=== PATIENT | female | born 1940 | race Caucasian/White ===

== ENCOUNTER 2017-03-16 14:17 | Observation (INO) | payer MEDICARE, MEDICAID ==
[~2017-03-16] VITALS: Ht 165.1 cm; Wt 89.9 kg
[~2017-03-16 14:17] MED LIST: ADVAIR HFA1 AER IH; ARICEPT 5MG TAB5 MG PO; ASPIRIN ADULT L81 M3 PO; CEFDINIR 300MG300 MG PO; CHLORDIAZEPOXID1 CAP PO; FLEXERIL10 MG PO; FOLBIC RF1 TAB PO; HYDROCHLOROTHIA25 M1 PO; HYDROXYZINE 25M25 MG PO; HYDROXYZINE HCL25 MG PO; IBUPROFEN200 MG PO; KAPIDEX60 MG PO; KETOPROFEN200 MG PO; LABETALOL 100M100 M1 PO; LASIX 40MG. TAB40 MG PO; LEVAQUIN500 MG PO; LEVOFLOXACIN 5500 MG PO; LIBRAX CAPSULE1 EACH PO; LOPRESSOR 50 MG50 MG PO; LOPRESSOR HCT1 TAB PO; MAGMTHWSH PO; MECLIZINE HYDRO25 MG PO; MULTIVITAMIN1 SGL PO; NICOTINE21 MG/24 H TD; OSTERA TABLET1 EACH PO; OXYCODONE5 MG PO; POTASSIUM CHLO10 MEQ PO; SIMVASTATIN40 MG PO
[2017-03-16 14:18] VITALS: BP 202/102; BP 254/132
--- OUTSIDE RECORDS SUMMARY | 2017-03-16 14:47 | External Medical Summary Rpt | CCD ---
Author Author , YVETTE JACKSON Address Unknown Phone [email or web address] Global Immunization Name Date Rout CVX Reac Dose Comm Prov Is Faci e tion ent ider Refu lity Give sed n PPV2 05-1 Intr 33 0.5 Hist PD20 No PD20 3 5-20 amus mL oric 255 255 17 cula al r Info rmat ion - Sour ce Unsp ecif ied
--- OUTSIDE RECORDS SUMMARY | 2017-03-16 14:47 | External Medical Summary Rpt | CCD ---
Author Author [employer] Organization [employer] Address Unknown Phone Unavailable Purpose Continuity of Care Document - through 2016
--- OUTSIDE RECORDS SUMMARY | 2017-03-16 14:47 | External Medical Summary Rpt | CCD ---
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 LOBAR PNEUMONIA, UNSPECIFIED ORGANISM J44.9 CHRONIC OBSTRUCTIVE PULMONARY DISEASE, UNSPECIFIED N39.0 URINARY TRACT INFECTION, SITE NOT SPECIFIED Results Labs Lab Lab Date Result Refere Interp Status Commen Order Detail nces retati t Range on Gas panel in Arterial blood (10-29-2016 11:45) Arteria NON complet l 017 APPLICA ed patency 11:45 BLE Wrist artery --pre arteria l punctur e SOURCE LEFT complet 017 BRACHIA ed 11:45 L Urinalysis dipstick W Reflex Microscopic panel in Urine (10-29-2016 10:50) Bacteri TRACE O complet a 017 ed [Presen 10:50 ce] in Urine sedimen t by Light microsc opy Erythro 3-5 0 complet cytes 017 ed [Presen 10:50 ce] in Urine sedimen t by Light microsc opy Epithel NONE 0#/hp complet ial 017 f - ed cells.s 10:50 5#/hp quamous f [Presen ce] in Urine sedimen t by Microsc opy high power field Urinalysis dipstick W Reflex Microscopic panel in Urine (10-29-2016 10:50) Appeara CLEAR CLEAR complet nce of 017 ed Urine 10:50 Bilirub NEGATIV NEG complet in 017 E ed [Presen 10:50 ce] in Urine by Test strip Erythro 2+ NEG Abnorma complet cytes 017 l ed [Presen 10:50 ce] in Urine Color YELLOW YELLOW complet of 017 ed Urine 10:50 Ketones 07-10-2 NEGATIV NEG complet 017 E ed [Presen 10:50 ce] in Urine by Automat ed test strip Mucus NEGATIV NEG complet [Presen 017 E ed ce] in 10:50 Urine sedimen t by Light microsc opy Nitrite NEGATIV NEG complet 017 E ed [Presen 10:50 ce] in Urine by Test strip Urobili 0.2 NEG complet nogen 017 ed [Presen 10:50 ce] in Urine by Test strip
--- OUTSIDE RECORDS SUMMARY | 2017-03-16 14:47 | External Medical Summary Rpt | CCD ---
Author Author , YVETTE Organization YVETTE Address Unknown Phone [email or web address] Purpose Continuity of Care Document - 10-29-2016 [...]
--- OUTSIDE RECORDS SUMMARY | 2017-03-16 14:47 | External Medical Summary Rpt | CCD ---
Author Author , YVETTE JACKSON Address Unknown Phone [email or web address] Agent Immunization Name Date Rout CVX Reac Dose Comm Prov Is Faci e tion ent ider Refu lity Give sed n PPV2 05-1 Intr 33 0.5 Hist PD20 No PD20 3 5-20 amus mL oric 255 255 17 cula al r Info rmat ion - Sour ce Unsp ecif ied
--- OUTSIDE RECORDS SUMMARY | 2017-03-16 14:48 | External Medical Summary Rpt ---
Author Author FANNYMOSHE Manzo, [employer] Organization [employer] Address Unknown Phone Unavailable Results Basic metabolic panel in Blood Observa Value Referen Units Interpr Notes Date tion ce etation Range Urea 7 - 18 mg/dL Normal No Oct 31 nitrogen informati 2016 6:10 [Mass/vol on in AM ume] in source Serum or data Plasma Calcium 8.5 - mg/dL Low Oct 31 [Mass/vol 10.1 NOTIFICAT 2017 6:10 ume] in ION AM Serum or RESULT Plasma Chloride 98 - 107 mmoL/L Normal No Oct 31 [Moles/vo informati 2016 6:10 lume] in on in AM Serum or source Plasma data Carbon 21.0 - mmoL/L High No Oct 31 dioxide, 32.0 informati 2017 6:10 total on in AM [Moles/vo source lume] in data Serum or Plasma Creatinin 0.55 - mg/dL Normal No Oct 31 e 1.02 informati 2016 6:10 [Mass/vol on in AM ume] in source Serum or data Plasma Creatinin 50 - 200 ML/MIN Normal No Oct 31 e renal informati 2017 6:10 clearance on in AM source predicted data by Cockcroft -Gault formula Estimated 59- ML/MIN No REFERENCE Oct 31 informati RANGE: 2017 6:10 glomerula on in >60 AM r source ML/MIN/1. filtratio data 73 SQUARE n rate METERSIf (GF this patient is -A merican, then multiply theresult by 1.210. Glucose 74 - 106 mg/dL High No Oct 31 [Mass/vol informati 2016 6:10 ume] in on in AM Serum or source Plasma data Potassium 3.5 - 5.1 mmoL/L Low No Oct 31 informati 2016 6:10 [Moles/vo on in AM lume] in source Serum or data Plasma Sodium 136 - 145 mmoL/L Normal No Oct 31 [Moles/vo informati 2016 6:10 lume] in on in AM Serum or source Plasma data CBC W Auto Differential panel in Blood Observa Value Referen Units Interpr Notes Date tion ce etation Range Basophils 0 - 0.2 K/MM3 Normal No Oct 30 informati 2016 6:05 [#/volume on in AM ] in source Blood by data Automated count Basophils 0.1 - 2.0 % Normal No Oct 30 informati 2017 6:05 leukocyte on in AM s in source Blood by data Automated count Eosinophi 0.0 - 0.4 K/mm3 Normal No Oct 30 ls informati 2016 6:05 [#/volume on in AM ] in source Blood by data Automated count Eosinophi 0.1 - % Normal No Oct 30 ls/100 12.0 informati 2016 6:05 leukocyte on in AM s in source Blood by data Automated count Granulocy 1.8 - 7.8 K/mm3 Normal No Oct 30 major informati 2016 6:05 [#/volume on in AM ] in source Blood by data Automated count Granulocy 37.0 - % Normal No Oct 30 major/100 80.0 informati 2016 6:05 leukocyte on in AM s in source Blood by data Automated count Hematocri 37.0 - % Normal No Oct 30 t [Volume 47.0 informati 2016 6:05 on in AM Fraction] source of Blood data Hemoglobi 12.2 - g/dL Normal No Oct 30 n 16.2 informati 2016 6:05 [Mass/vol on in AM ume] in source Blood data Lymphocyt 0.7 - 4.5 K/mm3 Normal No Oct 30 es informati 2016 6:05 [#/volume on in AM ] in source Unspecifi data ed specimen by Automated count Lymphocyt 10 - 50.0 % Normal No Oct 30 es informati 2016 6:05 [#/volume on in AM ] in source Unspecifi data ed specimen by Automated count Erythrocy 27 - 31.2 pg Normal No Oct 30 te mean informati 2016 6:05 corpuscul on in AM ar source hemoglobi data n [Entitic mass] Erythrocy 31.8 - g/dl Normal No Oct 30 te mean 35.4 informati 2017 6:05 corpuscul on in AM ar source hemoglobi data n concentra tion [Mass/vol ume] by Automated count Erythrocy 82.2 - fl Normal No Oct 30 te mean 97.8 informati 2017 6:05 corpuscul on in AM ar volume source [Entitic data volume] by Automated count Monocytes 0.1 - 1.0 K/mm3 Normal No Oct 30 informati 2017 6:05 [#/volume on in AM ] in source Blood by data Automated count Monocytes 1.7 - 9.3 % Normal No Oct 30 /100 informati 2017 6:05 leukocyte on in AM s in source Blood by data Automated count Platelet 7.4 - fl Low No Oct 30 mean 10.4 informati 2017 6:05 volume on in AM [Entitic source volume] data in Blood by Automated count Platelets 142 - 424 K/mm3 Normal No Oct 30 informati 2017 6:05 [#/volume on in AM ] in source Blood data Erythrocy 4.2 - 5.4 M/mm3 Normal No Oct 30 major informati 2017 6:05 [#/volume on in AM ] in source Amniotic data fluid Erythrocy 11.5 - % Normal No Oct 30 te 17.5 informati 2016 6:05 distribut on in AM ion width source [Entitic data volume] by Automated count Leukocyte 4.8 - K/MM3 Normal No Oct 30 s 10.8 informati 2016 6:05 [#/volume on in AM ] in source Blood data Basic metabolic panel in Blood Observa Value Referen Units Interpr Notes Date tion ce etation Range Urea 7 - 18 mg/dL Normal No Oct 30 nitrogen informati 2017 6:05 [Mass/vol on in AM ume] in source Serum or data Plasma Calcium 8.5 - mg/dL Low No Oct 30 [Mass/vol 10.1 informati 2017 6:05 ume] in on in AM Serum or source Plasma data Chloride 98 - 107 mmoL/L Normal No Oct 30 [Moles/vo informati 2017 6:05 lume] in on in AM Serum or source Plasma data Carbon 21.0 - mmoL/L High No Oct 30 dioxide, 32.0 informati 2017 6:05 total on in AM [Moles/vo source lume] in data Serum or Plasma Creatinin 0.55 - mg/dL Normal No Oct 30 e 1.02 informati 2017 6:05 [Mass/vol on in AM ume] in source Serum or data Plasma Creatinin 50 - 200 ML/MIN Normal No Oct 30 e renal informati 2017 6:05 clearance on in AM source predicted data by Cockcroft -Gault formula Estimated 59- ML/MIN No REFERENCE Oct 30 informati RANGE: 2017 6:05 glomerula on in >60 AM r source ML/MIN/1. filtratio data 73 SQUARE n rate METERSIf (GF this patient is -A merican, then multiply theresult by 1.210. Glucose 74 - 106 mg/dL High No Oct 30 [Mass/vol informati 2016 6:05 ume] in on in AM Serum or source Plasma data Potassium 3.5 - 5.1 mmoL/L Low alert Oct 30 2017 6:05 [Moles/vo CRITICAL AM lume] in RESULTS Serum or Plasma RESU LTS CALLED TO: GEOVANI 10/30/16 0643 Isabel Olivas e Sodium 136 - 145 mmoL/L Normal No Oct 30 [Moles/vo informati 2016 6:05 lume] in on in AM Serum or source Plasma data Gas panel in Arterial blood Observa Value Referen Units Interpr Notes Date tion ce etation Range Base -2.4-+2.3 MMOL/L High No Oct 29 excess in informati 2016 Arterial on in 11:45 AM blood source data Arteria NON No No No No Oct 29 l APPLICA informa informa informa informa 2017 patency BLE tion in tion in tion in tion in 11:45 Wrist source source source source AM artery data data data data --pre arteria l punctur e Bicarbona 22.0 - MMOL/L High No Oct 29 te 26.0 informati 2016 [Moles/vo on in 11:45 AM lume] in source Arterial data blood Oxygen No No No No Oct 29 content informati informati informati informati 2017 in on in on in on in on in 11:45 AM Arterial source source source source blood data data data data Carbon 35.0 - MMHG High Oct 29 dioxide 45.0 2016 [Partial CRITICAL 11:45 AM pressure] RESULTS in Arterial RESU blood LTS CALLED TO: DONNA AQUINO 10/29/16 1202 Earnestine Zhu pH of 7.35 - MMOL/L Normal No Oct 29 Arterial 7.45 inform2016 blood on in 11:45 AM source data Oxygen 80 - 100 MMHG Low No Oct 29 [Partial informati 2017 pressure] on in 11:45 AM in source Arterial data blood Oxygen 90 - 100 % Normal No Oct 29 saturatio ati 2016 n.calcula on in 11:45 AM johanny from source oxygen data partial pressure in Arterial blood SOURCE LEFT No No No No Oct 29 BRACHIA informa informa informa informa 2017 L tion in tion in tion in tion in 11:45 source source source source AM data data data data Carbon 23 - 27 MMOL/L High No Oct 29 dioxide, informati 2017 total on in 11:45 AM [Moles/vo source lume] in data Arterial blood Urinalysis dipstick W Reflex Microscopic panel in Urine Observa Value Referen Units Interpr Notes Date tion ce etation Range Appeara CLEAR CLEAR No No No Oct 29 nce of informa informa informa 2017 Urine tion in tion in tion in 10:50 source source source AM data data data Bacteri TRACE O No No No Oct 29 a informa informa informa 2016 [Presen tion in tion in tion in 10:50 ce] in source source source AM Urine data data data sedimen t by Light microsc opy Bilirub NEGATIV NEG No No No Oct 29 in E informa informa informa 2016 [Presen tion in tion in tion in 10:50 ce] in source source source AM Urine data data data by Test strip Erythro 2+ NEG No Abnorma No Oct 29 cytes informa l informa 2016 [Presen tion in tion in 10:50 ce] in source source AM Urine data data Color YELLOW YELLOW No No No Oct 29 of informa informa informa 2017 Urine tion in tion in tion in 10:50 source source source AM data data data Glucose NEG No High No Oct 29 [Mass/vol informati informati 2017 ume] in on in on in 10:50 AM Urine by source source Test data data strip Ketones NEGATIV NEG mg/dL No No Oct 29 E informa informa 2016 [Presen tion in tion in 10:50 ce] in source source AM Urine data data by Automat ed test strip Mucus NEGATIV NEG No No No Oct 29 [Presen E informa informa informa 2017 ce] in tion in tion in tion in 10:50 Urine source source source AM sedimen data data data t by Light microsc opy Nitrite NEGATIV NEG No No No Oct 29 E informa informa informa 2017 [Presen tion in tion in tion in 10:50 ce] in source source source AM Urine data data data by Test strip pH of 5.0 - 8.5 No Normal No Oct 29 Urine informati informati 2017 on in on in 10:50 AM source source data data Protein NEG mg/dL High No Oct 29 [Mass/vol informati 2017 ume] in on in 10:50 AM Urine by source Automated data test strip Erythro 3-5 0 rbc/hpf No No Oct 29 cytes informa informa 2016 [Presen tion in tion in 10:50 ce] in source source AM Urine data data sedimen t by Light microsc opy Specific 1.005 - No Normal No Oct 29 gravity 1.030 informati informati 2017 of Urine on in on in 10:50 AM source source data data Epithel NONE 0 - 5 #/hpf No No Oct 29 ial informa informa 2017 cells.s tion in tion in 10:50 quamous source source AM data data [Presen ce] in Urine sedimen t by Microsc opy high power field Urobili 0.2 NEG E.U./dL No No Oct 29 nogen informa informa 2016 [Presen tion in tion in 10:50 ce] in source source AM Urine data data by Test strip Leukocyte O wbc/hpf No No Oct 29 s informati informati 2017 [#/volume on in on in 10:50 AM ] in source source Urine data data Urinalysis dipstick W Reflex Microscopic panel in Urine Observa Value Referen Units Interpr Notes Date tion ce etation Range Appeara CLEAR CLEAR No No No Oct 29 nce of informa informa informa 2017 Urine tion in tion in tion in 10:50 source source source AM data data data Bilirub NEGATIV NEG No No No Oct 29 in E informa informa informa 2017 [Presen tion in tion in tion in 10:50 ce] in source source source AM Urine data data data by Test strip Erythro 2+ NEG No Abnorma No Oct 29 cytes informa l informa 2016 [Presen tion in tion in 10:50 ce] in source source AM Urine data data Color YELLOW YELLOW No No No Oct 29 of informa informa informa 2017 Urine tion in tion in tion in 10:50 source source source AM data data data Glucose NEG No High No Oct 29 [Mass/vol informati informati 2016 ume] in on in on in 10:50 AM Urine by source source Test data data strip Ketones NEGATIV NEG mg/dL No No Oct 29 E informa informa 2016 [Presen tion in tion in 10:50 ce] in source source AM Urine data data by Automat ed test strip Mucus NEGATIV NEG No No No Oct 29 [Presen E informa informa informa 2016 ce] in tion in tion in tion in 10:50 Urine source source source AM sedimen data data data t by Light microsc opy Nitrite NEGATIV NEG No No No Oct 29 E informa informa informa 2016 [Presen tion in tion in tion in 10:50 ce] in source source source AM Urine data data data by Test strip pH of 5.0 - 8.5 No Normal No Oct 29 Urine informati informati 2016 on in on in 10:50 AM source source data data Protein NEG mg/dL High No Oct 29 [Mass/vol informati 2016 ume] in on in 10:50 AM Urine by source Automated data test strip Specific 1.005 - No Normal No Oct 29 gravity 1.030 informati informati 2016 of Urine on in on in 10:50 AM source source data data Urobili 0.2 NEG E.U./dL No No Oct 29 nogen informa informa 2016 [Presen tion in tion in 10:50 ce] in source source AM Urine data data by Test strip Lactate [Moles/volume] in Blood Observa Value Referen Units Interpr Notes Date tion ce etation Range Lactate 0.4 - 2.0 mmol/L Normal No Oct 29 [Moles/vo informati 2017 9:40 lume] in on in AM Blood source data Fibrin D-dimer FEU [Mass/volume] in Platelet poor plasma Observa Value Referen Units Interpr Notes Date tion ce etation Range Fibrin 0 - 400 ng/mL High Oct 29 D-dimer alert NOTIFICAT 2017 9:35 FEU ION AM [Mass/vol RESULT ume] in The Platelet D-Dimer poor values plasma are presented in units of mass(ng/m L) ofD-Dimer units(DDU ).This test has been FDA approved as an aid in the assessmen tand evaluatio n of suspected DIC, and thromboem bolic eventsinc luding PE and DVT. However, it does not have approvalf or cut-off values for the exclusion of these condition s. Natriutietic peptide B [Mass/volume] in Serum or Plasma Observa Value Referen Units Interpr Notes ti ce etation Range Natriutie 0 - 100 pg/mL Normal No Oct 29 tic informati 2016 9:35 peptide B on in AM source [Mass/vol data ume] in Serum or Plasma PT & aPTT panel in Platelet poor plasma by Coagulation assay Observa Value Referen Units Interpr Notes ti ce etation Range INR in 0.9 - 1.1 No No INDICATIO Oct 29 Blood by informati informati N 2016 9:35 Coagulati on in on in AM on assay source source INR data data RANGETHER APY FOR DVT, PE, ATRIAL FIB; 2.0 - 3.0PROPHY LAXIS FOR VTETHERAP Y FOR MECHANICA L HEART 2.5 - 3.5VALVE; PREVENTIO N OF SYSTEMICE MBOLISM SECONDARY TO AMI Prothromb 9.4 - SECONDS Normal No Oct 29 in time 11.8 informati 2016 9:35 (PT) in on in AM Platelet source poor data plasma by Coagulati on assay Activated 23.6 - SECONDS Normal No Oct 29 partial 34.0 informati 2016 9:35 thrombpla on in AM stin time source (aPTT) data in Platelet poor plasma by Coagulati on assay CBC W Auto Differential panel in Blood Observa Value Referen Units Interpr Notes Date ti ce etation Range Basophils 0 - 0.2 K/MM3 Normal No Oct 29 informati 2016 9:35 [#/volume on in AM ] in source Blood by data Automated count Basophils 0.1 - 2.0 % Normal No Oct 29 /100 informati 2016 9:35 leukocyte on in AM s in source Blood by data Automated count Eosinophi 0.0 - 0.4 K/mm3 Normal No Oct 29 ls informati 2016 9:35 [#/volume on in AM ] in source Blood by data Automated count Eosinophi 0.1 - % Normal No Oct 29 ls/100 12.0 informati 2017 9:35 leukocyte on in AM s in source Blood by data Automated count Granulocy 1.8 - 7.8 K/mm3 High No Oct 29 major informati 2016 9:35 [#/volume on in AM ] in source Blood by data Automated count Granulocy 37.0 - % Normal No Oct 29 major/100 80.0 informati 2016 9:35 leukocyte on in AM s in source Blood by data Automated count Hematocri 37.0 - % Normal No Oct 29 t [Volume 47.0 informati 2016 9:35 on in AM Fraction] source of Blood data Hemoglobi 12.2 - g/dL Normal No Oct 29 n 16.2 informati 2016 9:35 [Mass/vol on in AM ume] in source Blood data Lymphocyt 0.7 - 4.5 K/mm3 Normal No Oct 29 es informati 2016 9:35 [#/volume on in AM ] in source Unspecifi data ed specimen by Automated count Lymphocyt 10 - 50.0 % Normal No Oct 29 es informati 2016 9:35 [#/volume on in AM ] in source Unspecifi data ed specimen by Automated count Erythrocy 27 - 31.2 pg Normal No Oct 29 te mean informati 2016 9:35 corpuscul on in AM ar source hemoglobi data n [Entitic mass] Erythrocy 31.8 - g/dl Normal No Oct 29 te mean 35.4 informati 2016 9:35 corpuscul on in AM ar source hemoglobi data n concentra tion [Mass/vol ume] by Automated count Erythrocy 82.2 - fl Normal No Oct 29 te mean 97.8 informati 2016 9:35 corpuscul on in AM ar volume source [Entitic data volume] by Automated count Monocytes 0.1 - 1.0 K/mm3 Normal No Oct 29 informati 2016 9:35 [#/volume on in AM ] in source Blood by data Automated count Monocytes 1.7 - 9.3 % Normal No Oct 29 informati 2016 9:35 leukocyte on in AM s in source Blood by data Automated count Platelet 7.4 - fl Normal No Oct 29 mean 10.4 informati 2016 9:35 volume on in AM [Entitic source volume] data in Blood by Automated count Platelets 142 - 424 K/mm3 Normal No Oct 29 informati 2016 9:35 [#/volume on in AM ] in source Blood data Erythrocy 4.2 - 5.4 M/mm3 Normal No Oct 29 major informati 2016 9:35 [#/volume on in AM ] in source Amniotic data fluid Erythrocy 11.5 - % Normal No Oct 29 te 17.5 informati 2016 9:35 distribut on in AM ion width source [Entitic data volume] by Automated count Leukocyte 4.8 - K/MM3 Normal No Oct 29 s 10.8 informati 2016 9:35 [#/volume on in AM ] in source Blood data
[2017-03-16 15:01] LABS: URINE BILIRUBIN - DIPSTICK NEGATIVE (NEG); URINE BLOOD 1+ (NEG)
[2017-03-16 15:11] LABS: URINE SQUAMOUS CELLS OCC #/hpf (0-5)
[2017-03-16 15:15] LABS: LYMPH # 0.9 K/mm3 (0.7-4.5); LYMPH % 8.5 % (10-50.0)
[2017-03-16 15:16] LABS: HEMOGLOBIN 14.3 g/dL (12.2-16.2)
--- NOTE | 2017-03-16 15:38 | Emergency Room Report ---
History of Present Illness Time Seen by 1420 Presenting Problem in Triage Pt arrived:Ambulance Stretcher Presenting Problem:PT SON STATES FOUND PT AT HOME CONFUSED ACTING. STATES PT WAS HER NORMAL LASTNIGHT. SON CAME TO PT HOME AT 1100. PT SPEECH IS CLEAR BUT CONFUSED IN NATURE AT TIMES. PT CAN ANSWER SOME QUESTIONS. 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 N Clinical Suspician of Infection? N Mental Status: 2 - Mildly Altered Sepsis Risk:Low Sepsis Risk Have you (or family members/close friends) recently traveled outside the [place]? N If Yes, where/when: Have you had exposure to infectious disease within the past month? N TB? Other? Specify: Source patient, RN notes reviewed, family, EMS, old records Exam Limitations no limitations Comment pt was noted at 1100 am to have expressive aphasia - last noted to be nl at 2300 prev night - she has no fever or rash or trauma but had similiar issues in november 05 Cardiac Chest Pain Chest pain indicative of cardiac No Timing/Duration this evening Severity moderate ALLERGIES Coded Allergies: Opiate Agonists (Narcotics) (NARCOTICS) (10/29/16) Penicillins (10/29/16) Sulfa (Sulfonamide Antibiotics) (10/29/16) prednisone (10/29/16) Home Medications Active Scripts Labetalol Hcl (Labetalol 100MG Tablet) 100 MG PO BID #60 TAB Ref 2 Prov: 09/24/15 HYDROCHLOROTHIAZIDE (Hydrochlorothiazide) 25 MG PO DAILY #30 TAB Ref 2 Prov: 09/24/15 Reported Medications Potassium Chloride (POTASSIUM CHLORIDE 10mEq CAP) 10 MEQ PO BID 90 Days ASPIRIN (Aspirin) 81 MG PO DAILY Dexlansoprazole (Dexilant) 60 MG PO DAILY DONEPEZIL HCL (Aricept 5MG) 5 MG PO QHS Simvastatin (Simvastatin 40MG Tab) 40 MG PO DAILY 90 Days FLUTICASONE/SALMETEROL (Advair Hfa 115-21 Mcg Inhaler) 1 PUFF IH PRN PRN BREATHING 30 Days Meclizine Hcl (Meclizine Hydrochloride) 25 MG PO TIDP PRN DIZZINESS 90 Days Ibuprofen (Ibuprofen 200MG) 200 MG PO Q6HP PRN PAIN MULTIVITAMIN (Multivitamins) 1 SGL PO DAILY Vit D3 & K/Berberine HCl/Hops (Ostera Tablet) 1 EACH PO WEEKLY B12/LEVOMEFOLATE CALCIUM/B-6 (Folbic Rf Tablet) 1 TAB PO MONTHLY Furosemide (Lasix 40MG) 40 MG PO QOTHERDAY CLIDINIUM & CHLORDIAZEPOXIDE (Chlordiazepoxide-Clidinium Cap) 1 CAP PO DAILY History Medical History General CAD? No Angina: No MD: No Hypertension? Yes Hyperlipidemia? Yes CHF? No DVT? No PE? No COPD? Yes Asthma? Yes Anemia? No GERD? Yes Gastric ulcers? No GI Bleed? No Hernia? No Thyroid Problems? No Hypothyroidism? No CVA? No Seizures? No Diabetes? No Renal Insuffiency? No End Stage Renal Disease? No UTI? Yes Stones? No GB Disease: Yes Nephritic Syndrome? No Asplenia? No Hepatitis? No Sickle Cell Disease? No Arthritis? Yes Migraines? No Cataracts? Yes Glaucoma? No MRSA? No HIV? No TB? No Anxiety? No Depression? No Cancer? No Immunization Hx DT/Tetanus Unknown Flu Refused Pneumonia Received In Past Surgical Hx Previous Surgery?Y GB REMOVED TUBAL LIGATION BILATERAL CATARACTS BACK SURGERY Family History Family Hx Diabetes No CAD Yes Hypertension No Hyperlipidemia No Cancer No TB No Social History Smoking Hx Smoker: Former Smoker Tobacco: No Packs/day < 1 Pack Alcohol Alcohol: No Drugs none Review of Systems All Other Systems Reviewed and Negative Constitutional denies fever Eyes denies drainage ENT denies: ear discharge, epistaxis, throat pain. Respiratory see HPI, cough, denies wheezing Cardiovascular denies chest pain, denies palpitations, denies syncope Gastrointestinal denies abdominal pain, denies diarrhea, denies vomiting Genitourinary denies: dysuria, frequency, hesitancy, hematuria. Musculoskeletal denies back pain, denies joint pain, denies joint swelling, denies neck pain Skin denies rash Psychiatric/Neurological see HPI, denies headache, denies seizure, other Physical Exam Vital Signs Vital Signs Date Time Temp Pulse Resp B/P Pulse O2 O2 Flow FiO2 Ox Delivery Rate 03/16 1613 88 20 178/99 94 2 03/16 1534 80 20 181/119 94 2 03/16 1418 98.5 86 20 202/102 95 2 - WBC >12,000 or <4,000 or 10% bands? 2 or more SIRS Criteria Met? B/P:178/99 MAP:172 Creatinine >2.0? UA output<0.5ml/kg/hr for 2 hrs? Platelet count >100,000? Lactate >2.0mmol/1? INR >1.2 or PTT > than 60 sec? Evidence of Organ Dysfunction? Provider documented clinical suspician of infection? N Sepsis Criteria Count: 1 Sepsis Risk: Low Sepsis Risk General Appearance no apparent distress Eye Exam - bilateral eye PERRL, bilateral eye EOMI Ear, Nose, Throat normal ENT inspection Neck supple Respiratory Status No: respiratory distress. Lung Sounds right: decreased breath sounds. 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 No Results/Orders Laboratory Tests 03/16/17 1452: Lactic Acid 2.0 03/16/17 1452: Sodium 137, Potassium 3.9, Chloride 96 L, Carbon Dioxide 36 H, BUN 12, Creatinine 0.9, Estimated Creat Clear 68, Estimated GFR (MDRD) 61, Glucose 298 H, Calcium 8.7, Total Bilirubin 0.5, AST 27, ALT 28, Alkaline Phosphatase 164 H , Troponin I 0.02, Total Protein 7.8, Albumin 2.9 L, Globulin 4.9 H, Albumin/ Globulin Ratio 0.6 L, WBC 10.1, RBC 4.81, Hgb 14.3, Hct 44.2, MCV 92.0, RDW 12.7, Plt Count 229, MPV 7.9, Gran % 85.6 H, Gran # 8.6 H, Total Counted 100, Lymphocytes % 8.5 L, Monocytes % 3.9, Eosinophils % 1.7, Basophils % 0.3, Neutrophils 87 H, Lymphocytes (Manual) 5 L, Lymphocytes # 0.9, Monocytes ( Manual) 2, Monocytes # 0.4, Eosinophils # 0.2, Eosinophils # (Manual) 1, Basophils # 0.0, Atypical Lymphocytes 5, Platelet Estimate NORMAL, PUBS MCHC 32.7, MCH 30.0 03/16/17 1430: Urine Color STRAW, Urine Appearance CLEAR, Urine pH 7.0, Ur Specific [place] 1.020, Urine Protein 2+ H, Urine Ketones NEGATIVE, Urine Blood 1+ H, Urine Nitrate NEGATIVE, Urine Bilirubin NEGATIVE, Urine Urobilinogen 0.2, Ur Leukocyte Esterase NEGATIVE, Urine RBC OCC, Urine WBC 3-5, Ur Squamous Epith Cells OCC, Urine Bacteria 1+, Urine Glucose 3+ H Current Medication Orders Sig/Katiana Start time Last Medication Dose Route Stop Time Status Admin Ceftriaxone Sodium 0 .STK-MED ONE 03/16 161 DCr IV Sodium Chloride 50 ML .STK-MED ONE 03/16 1616 DC IV Azithromycin 500 MG ONCE ONE 03/16 1600 AC Sodium Chloride 250 ML IV 03/16 1659 Ceftriaxone Sodium 1 GM ONCE ONE 03/16 1600 r 03/16 Sodium Chloride 50 ML IV 03/16 1629 1618 Sodium Chloride 10 ML PRN PRN 03/16 1430 AC IV 03/17 1426 Orders Procedure Date/time Status DIET-NOTHING BY MOUTH 03/16 D Active Decision to admit 03/16 1557 Active CHEST-PORTABLE 03/16 1532 Active URINARY CATHETER INSERT 03/16 1517 Active DIFFERENTIAL-WBC 03/[address] HEAD REQ 03/16 1431 Complete CULTURE, BLOOD 03/16 1431 Active LACTIC ACID 03/16 1431 Complete IV SALINE LOCK 03/16 1426 Active URINALYSIS/COMPLETE 03/16 1426 Complete TROPONIN I 03/16 1426 Complete COMPLETE METABOLIC PANEL 03/16 1426 Complete CBC WITH AUTO DIFF 03/16 1426 Complete XRAY/CT/US XRAY/CT/US 1 XRAY chest XR interpretation by reviewed by me Xray Results abnormal (rt pleural effusion ) XRAY/CT/US [address] interpretation by discussed w/radiologist Time results known: 1630 CT Results normal/NAD Departure Departure Time of Disposition 1556 Disposition Still a Patient Clinical Impression Primary Impression: CAP (community acquired pneumonia) Qualifiers: Laterality: right Lung location: lower lobe of lung Qualified Code: J18.1 - Lobar pneumonia, unspecified organism Secondary Impressions: Expressive aphasia Condition STABLE Referrals Shirlene Reynoso APRN (Family) discussed with dr rafi WALLIS Critical Care Critical Care No at 1637
[2017-03-16 15:41] LABS: NEUTROPHILS 87 % (42-76)
--- NOTE | 2017-03-16 16:12 | RADIOLOGY REPORT PS360 ---
CT HEAD W/O CONTRAST COMPARISON: CT brain noncontrast 10/29/2016 HISTORY: No acute TECHNIQUE: Altered axial scans obtained from base skull to the vertex and were performed without contrast. FINDINGS: The base of skull normal, the mastoids are clear. There is moderate motion artifact on several of the images however the ventricular system is normal.. The sylvian fissures and cortical sulci are somewhat prominent. Moderate periventricular hypodensities consistent with chronic ischemic white matter changes. There is no bleed and there are no extra-axial fluid collections. Bony calvarium appears intact. IMPRESSION: Findings of mild cortical atrophy and moderate chronic white matter changes, no acute intracranial pathology noted.
[2017-03-16 17:15] VITALS: BP 206/87
[2017-03-16 18:01] VITALS: BP 206/87
[2017-03-16] MEDS ORDERED: LOPRESSOR 50 MG50 MG PO (18:14)
--- NOTE | 2017-03-16 19:28 | HISTORY AND PHYSICAL REPORT ---
Demographics: Admit date: 03/16/17 Chief complaint: Aphasia PRIMARY DIAGNOSIS: TIA Allergies: Coded Allergies: Opiate Agonists (Narcotics) (NARCOTICS) (10/29/16) Penicillins (10/29/16) Sulfa (Sulfonamide Antibiotics) (10/29/16) prednisone (10/29/16) History of present illness: History of present illness: 77-year-old female brought to the emergency department by her son after she awoke this morning and he noticed she was having difficulty talking. This is not the first time the patient has had aphasia. Multiple family members are present at bedside state whenever she has a urinary tract infection she will develop expressive aphasia. Son noticed onset of symptoms and when symptoms did not resolve he brought her to the emergency department. In the emergency department blood pressure was significantly elevated, exam revealed patient was having expressive aphasia, x-ray of the chest showed a RIGHT pleural effusion. Patient had a RIGHT pleural effusion associated with pneumonia back in October and decision was made to admit the patient for IV antibiotics to treat possible underlying pneumonia and perform neuro checks. Since admission some family members believe her expressive aphasia has improved and now every other since seems to be understandable speech. Because of patient's symptoms on presentation the emergency department transfer to [facility] was discussed but both patient and her son refused transfer In regards to the RIGHT pleural effusion patient had a rather complex history in regards to the RIGHT lung. This is not the first time she has had an effusion. Hospital records document pleural effusion in June 2014 and at that time patient underwent chest tube placement for a few days which evacuated the effusion. Patient had a CT scan performed this year in October in regards to the effusion. Son tells me patient has undergone bronchoscopy as well to rule out malignancy. Past medical history: Family HX Family Hx Insignificant No Diabetes Yes CAD Yes Hypertension Yes Hyperlipidemia No Cancer No TB No Immunization HX DT/Tetanus 1-4 Years Ago Flu Refused Pneumonia Received In Past TB Test in last year No General CAD? No Angina: No [place]: No Hypertension? Yes Hyperlipidemia? Yes CHF? No DVT? No PE? No COPD? Yes Asthma? Yes Anemia? No GERD? Yes Gastric ulcers? No GI Bleed? No Hernia? No Thyroid Problems? No Hypothyroidism? No CVA? No Seizures? No Diabetes? No Renal Insuffiency? No UTI? Yes Stones? No GB Disease: Yes Nephritic Syndrome? No Asplenia? No Hepatitis? No Sickle Cell Disease? No Arthritis? Yes Migraines? No Cataracts? Yes Glaucoma? No MRSA? No HIV? No TB? No Anxiety? No Depression? No Cancer? No Past Surgical HX Previous Surgery?Y GB REMOVED TUBAL LIGATION BILATERAL CATARACTS BACK SURGERY Current home meds: Active Scripts Labetalol Hcl (Labetalol 100MG Tablet) 100 MG PO BID #60 TAB Ref 2 Prov: 09/24/15 Reported Medications Potassium Chloride (POTASSIUM CHLORIDE 10mEq CAP) 10 MEQ PO BID 90 Days ASPIRIN (Aspirin) 81 MG PO DAILY DONEPEZIL HCL (Aricept 5MG) 5 MG PO QHS Metoprolol Tartrate (Lopressor) 50 MG PO BID Simvastatin (Simvastatin 40MG Tab) 40 MG PO DAILY 90 Days FLUTICASONE/SALMETEROL (Advair Hfa 115-21 Mcg Inhaler) 1 PUFF IH PRN PRN BREATHING 30 Days Ibuprofen (Ibuprofen 200MG) 200 MG PO Q6HP PRN PAIN MULTIVITAMIN (Multivitamins) 1 SGL PO DAILY Vit D3 & K/Berberine HCl/Hops (Ostera Tablet) 1 EACH PO WEEKLY B12/LEVOMEFOLATE CALCIUM/B-6 (Folbic Rf Tablet) 1 TAB PO MONTHLY CLIDINIUM & CHLORDIAZEPOXIDE (Chlordiazepoxide-Clidinium Cap) 1 CAP PO DAILY Social Hx: Smoking HX Tobacco No Packs/day < 1 PACK Are you/the child exposed to second-hand smoke: No Alcohol Alcohol: No Hx of Drug Use Drug Use? No Patient's support system is good Review of systems: Constitutional No: chills, diaphoresis, fever, malaise, weakness. Respiratory cough. No: shortness of breath, SOB with excertion, SOB at rest, wheezing. Cardiovascular No chest pain, No edema, No palpitations Gastrointestinal/Abdominal poor appetite, vomiting Genitourinary no symptoms reported. Musculoskeletal no symptoms reported. Neurological Yes: see HPI. Exam: Lab data for last 24 hours: Laboratory Tests 03/16/17 1452: Lactic Acid 2.0 03/16/17 1452: Hemoglobin A1c 9.5 H 03/16/17 1452: Sodium 137, Potassium 3.9, Chloride 96 L, Carbon Dioxide 36 H, BUN 12, Creatinine 0.9, Estimated Creat Clear 68, Estimated GFR (MDRD) 61, Glucose 298 H, Calcium 8.7, Total Bilirubin 0.5, AST 27, ALT 28, Alkaline Phosphatase 164 H , Troponin I 0.02, Total Protein 7.8, Albumin 2.9 L, Globulin 4.9 H, Albumin/ Globulin Ratio 0.6 L, WBC 10.1, RBC 4.81, Hgb 14.3, Hct 44.2, MCV 92.0, RDW 12.7, Plt Count 229, MPV 7.9, Gran % 85.6 H, Gran # 8.6 H, Total Counted 100, Lymphocytes % 8.5 L, Monocytes % 3.9, Eosinophils % 1.7, Basophils % 0.3, Neutrophils 87 H, Lymphocytes (Manual) 5 L, Lymphocytes # 0.9, Monocytes ( Manual) 2, Monocytes # 0.4, Eosinophils # 0.2, Eosinophils # (Manual) 1, Basophils # 0.0, Atypical Lymphocytes 5, Platelet Estimate NORMAL, PUBS MCHC 32.7, MCH 30.0 03/16/17 1430: Urine Color STRAW, Urine Appearance CLEAR, Urine pH 7.0, Ur Specific [employer] 1.020, Urine Protein 2+ H, Urine Ketones NEGATIVE, Urine Blood 1+ H, Urine Nitrate NEGATIVE, Urine Bilirubin NEGATIVE, Urine Urobilinogen 0.2, Ur Leukocyte Esterase NEGATIVE, Urine RBC OCC, Urine WBC 3-5, Ur Squamous Epith Cells OCC, Urine Bacteria 1+, Urine Glucose 3+ H Microbiology 03/16 145 BLOOD: Anaerobic Blood Culture - RECD 03/16 145 BLOOD: Aerobic Blood Culture - RECD 03/16 145 BLOOD: Anaerobic Blood Culture - RECD 03/16 1452 BLOOD: Aerobic Blood Culture - RECD Admission vital signs: 1ST Vital Signs Result Date Time Pulse Ox 95 03/16 1418 B/P 202/102 03/16 1418 O2 Flow Rate 2 03/16 1418 Temp 98.5 03/16 141 Pulse 86 03/16 1418 Resp 20 03/16 1418 O2 Delivery OXYGEN 03/16 1715 Vital Signs Date Time Temp Pulse Resp B/P Pulse O2 O2 Flow FiO2 Ox Delivery Rate 03/16 1844 2 03/16 1801 98.1 84 20 206/87 03/16 1752 84 03/16 1752 95 OXYGEN 03/16 1732 2 03/16 1715 98.1 84 20 206/87 95 OXYGEN 03/16 1700 98.2 88 20 178/99 94 2 03/16 1613 88 20 178/99 94 2 03/16 1534 80 20 181/119 94 2 03/16 1418 98.5 86 20 202/102 95 2 Exam General appearance: awake, no acute distress Eyes: conjunctiva clear, EOM's w/normal ROM, pupils reactive to light ENT: mucous membranes moist Neck: no carotid bruit, no JVD Cardiovascular: regular rate & rhythm Respiratory: clear with diminished sounds at the RIGHT base ABD: soft, no tenderness Musculoskeletal: motor intact, sensation intact, questionably mildly weakened RIGHT triceps strength and RIGHT teacher emotionally impaired strength. 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 TIA (transient ischemic attack) 2. Expressive aphasia 3. COPD (chronic obstructive pulmonary disease) 4. Hypertension Plan: Patient's blood pressure remained severely elevated and she will be given labetalol 20 mg intravenously to bring that down with goal systolic blood pressure being between 160 and 180 at this time. Neuro checks will be performed. Labs also reveal a diagnosis of diabetes with A1c of 9.5. In regards to the RIGHT pleural effusion it is unchanged since October and I doubt underlying pneumonia. Patient has been given intravenous Rocephin and azithromycin. Labs will be repeated in the morning. Patient takes Lopressor for blood pressure control and this will be continued at 1928
--- NOTE | 2017-03-16 19:40 | RADIOLOGY REPORT PS360 ---
CHEST-PORTABLE COMPARISON: AP upright chest 10/29/2016 HISTORY: Mental confusion TECHNIQUE: Portable upright chest FINDINGS: The lung chapman are well expanded. There is a persistent opacity at the right lung base likely resenting a combination of loculated pleural fluid and/or pleural and parenchymal scarring. A pneumonic infiltrate in right lower lobe cannot be entirely excluded but overall the appearance of the right lung base unchanged from previous exam in October. Right upper lung field left lung field are clear. Cardiac size is normal and the vascularity is normal. Pedicle screws and metallic brackets are seen in the lower thoracic and upper lumbar spine. IMPRESSION: Stable chest unchanged from previous exam with probable combination of loculated chronic pleural effusion and/or pleural-parenchymal scarring but as mentioned an acute pneumonic infiltrate cannot be entirely excluded and if clinically suspected a follow-up PA and lateral chest in 4-5 days would be helpful for additional evaluation
[2017-03-16 20:00] VITALS: BP 174/91
[2017-03-16 20:45] VITALS: BP 174/91
[2017-03-17] VITALS (9 sets, daily range): BP systolic 137–172; BP diastolic 58–94
[2017-03-17 07:04] LABS: HEMOGLOBIN 13.2 g/dL (12.2-16.2); LYMPH # 1.2 K/mm3 (0.7-4.5); LYMPH % 13.7 % (10-50.0)
--- NOTE | 2017-03-17 07:04 | ACUTE CARE PROGRESS NOTE (QUA) ---
Progress Notes Subjective Date 03/17/17 Time 0701 Note Patient is develop some wheezing overnight. Aphasia has improved this morning. A she is awake and alert. She is oriented to person and place. Speech is fluent and clear. Aphasia seems to have resolved. Lungs have faint expiratory wheezes. Heart has regular rate and rhythm. Patient is to increase her activity level today. Patient will be given duo nebs for wheezing as apparently she uses these at home. Continue Lopressor and hydrochlorothiazide for blood pressure control. Patient has when necessary hydralazine ordered should blood pressure rise again. Patient will be started on sliding scale insulin while hospitalized for her diabetes Objective Findings Last VS-Temp:99.2 B/P:137/75 Pulse:78 Resp:20 SaO2:93 OXYGEN Last weight lbs:198 oz:4 [id number] Method:Bed Scales Laboratory Tests 03/16/17 1452: Lactic Acid 2.0 03/16/17 1452: Hemoglobin A1c 9.5 H 03/16/17 1452: Sodium 137, Potassium 3.9, Chloride 96 L, Carbon Dioxide 36 H, BUN 12, Creatinine 0.9, Estimated Creat Clear 68, Estimated GFR (MDRD) 61, Glucose 298 H, Calcium 8.7, Total Bilirubin 0.5, AST 27, ALT 28, Alkaline Phosphatase 164 H , Troponin I 0.02, Total Protein 7.8, Albumin 2.9 L, Globulin 4.9 H, Albumin/ Globulin Ratio 0.6 L, WBC 10.1, RBC 4.81, Hgb 14.3, Hct 44.2, MCV 92.0, RDW 12.7, Plt Count 229, MPV 7.9, Gran % 85.6 H, Gran # 8.6 H, Total Counted 100, Lymphocytes % 8.5 L, Monocytes % 3.9, Eosinophils % 1.7, Basophils % 0.3, Neutrophils 87 H, Lymphocytes (Manual) 5 L, Lymphocytes # 0.9, Monocytes ( Manual) 2, Monocytes # 0.4, Eosinophils # 0.2, Eosinophils # (Manual) 1, Basophils # 0.0, Atypical Lymphocytes 5, Platelet Estimate NORMAL, PUBS MCHC 32.7, MCH 30.0 03/16/17 1430: Urine Color STRAW, Urine Appearance CLEAR, Urine pH 7.0, Ur Specific [place] 1.020, Urine Protein 2+ H, Urine Ketones NEGATIVE, Urine Blood 1+ H, Urine Nitrate NEGATIVE, Urine Bilirubin NEGATIVE, Urine Urobilinogen 0.2, Ur Leukocyte Esterase NEGATIVE, Urine RBC OCC, Urine WBC 3-5, Ur Squamous Epith Cells OCC, Urine Bacteria 1+, Urine Glucose 3+ H Microbiology 03/16 1452 BLOOD: Anaerobic Blood Culture - RECD 03/16 145 BLOOD: Aerobic Blood Culture - RECD 03/16 145 BLOOD: Anaerobic Blood Culture - RECD 03/16 1452 BLOOD: Aerobic Blood Culture - RECD Assessment/Plan Problem List 1. TIA (transient ischemic attack) 2. Expressive aphasia 3. COPD (chronic obstructive pulmonary disease) 4. Hypertension 5. Diabetes mellitus type 2, uncontrolled Plan: continue current care, make medication changes (add sliding scale insulin) This inpt stay is expected to cross 2 MNs from start of care Yes at 0703
--- NOTE | 2017-03-17 09:51 | PHARMACY CLINIC NOTE ---
Patient Demographics Patient Demographics Admission date: 03/16/17 Date: 03/17/17 Time: 0950 Allergies Coded Allergies: Opiate Agonists (Narcotics) (NARCOTICS) (10/29/16) Penicillins (10/29/16) Sulfa (Sulfonamide Antibiotics) (10/29/16) prednisone (10/29/16) HEIGHT- FT: 5 IN: 5.00 [id number] VTE General Information Labs: Laboratory Tests 03/17 03/16 0610 1452 Hematology Hgb (12.2 - 16.2 g/dL) 13.2 14.3 Hct (37.0 - 47.0 %) 40.0 44.2 Plt Count (142 - 424 K/mm3) 154 229 Disclaimer The following section includes nursing documentation that has been pulled in for pharmacy review. Patient's VTE score: 4 Patient's VTE Risk: LOW RISK Clinical trial participant? No VTE prophylaxis [id number] VTE prophylaxis ordered? Yes Type of prophylaxis/treatment: MAULIK at 0950
[2017-03-18 04:00] VITALS: BP 153/68
[2017-03-18 08:00] VITALS: BP 149/80
--- NOTE | 2017-03-18 08:04 | ACUTE CARE PROGRESS NOTE (QUA) ---
Progress Notes Subjective Date 03/18/17 Time 0802 Note Overall patient feels much better, has no complaints. Eating well, has been up in a chair nicely. Wishes to have her catheter out. Lungs are clear, neurologic issues have resolved. Heart rate regular. No edema. Objective Findings Last VS-Temp:98.7 B/P:153/68 Pulse:72 Resp:20 SaO2:95 OXYGEN Last weight lbs:198 oz:4 K.926 Method:Bed Scales Assessment/Plan Problem List 1. TIA (transient ischemic attack) 2. Expressive aphasia 3. COPD (chronic obstructive pulmonary disease) 4. Hypertension 5. Diabetes mellitus type 2, uncontrolled Patient condition Improving Plan: continue current care, initiate discharge plan This inpt stay is expected to cross 2 MNs from start of care Yes at 0803
--- NOTE | 2017-03-18 08:06 | DISCHARGE SUMMARY STANDARD ---
Demographics Admit date: 03/16/17 Discharge date: 03/18/17 History of present illness History of present illness 77-year-old female brought to the emergency department by her son after she awoke this morning and he noticed she was having difficulty talking. This is not the first time the patient has had aphasia. Multiple family members are present at bedside state whenever she has a urinary tract infection she will develop expressive aphasia. Son noticed onset of symptoms and when symptoms did not resolve he brought her to the emergency department. In the emergency department blood pressure was significantly elevated, exam revealed patient was having expressive aphasia, x-ray of the chest showed a RIGHT pleural effusion. Patient had a RIGHT pleural effusion associated with pneumonia back in October and decision was made to admit the patient for IV antibiotics to treat possible underlying pneumonia and perform neuro checks. Since admission some family members believe her expressive aphasia has improved and now every other since seems to be understandable speech. Because of patient's symptoms on presentation the emergency department transfer to [facility] was discussed but both patient and her son refused transfer In regards to the RIGHT pleural effusion patient had a rather complex history in regards to the RIGHT lung. This is not the first time she has had an effusion. Hospital records document pleural effusion in June 2014 and at that time patient underwent chest tube placement for a few days which evacuated the effusion. Patient had a CT scan performed this year in October in regards to the effusion. Son tells me patient has undergone bronchoscopy as well to rule out malignancy. Hospital Course Hospital Course: History as above on admission. Patient was admitted and placed on antibiotics. Did well. Her CT scan of head was nondiagnostic with no acute changes. She was also found to have no evidence of urinary tract infection. Interestingly her blood pressure on presentation was over 200 systolic and as this improved her symptoms also improved. This morning she was doing well. Please see my discharge progress note. She'll be discharged home today. She will be rescheduled for follow-up at our office in 4 days. We will see her at that point to evaluate blood pressure. She will need home health reinstituted for blood pressure evaluation, PT/OT and home safety. She is homebound because of dyspnea with her chronic obstructive pulmonary disease, pain with ambulation and her severe blood pressure concerns. Discharge diagnoses Problem List 1. TIA (transient ischemic attack) 2. Expressive aphasia 3. COPD (chronic obstructive pulmonary disease) 4. Hypertension 5. Diabetes mellitus type 2, uncontrolled Medications Medications: Discharge meds are as noted. Follow up Follow up in office in: 3 DAYS with: Shirlene Reynoso APRN at [id number]
[2017-03-18] MEDS ORDERED: OMNICEF 300 MG300 MG PO (08:07)
[2017-03-18] MEDS ORDERED: ZITHROMAX Z-PA250 M2 PO (08:07)
[2017-03-18 10:45] VITALS: BP 153/68
== END 2017-03-18 11:05 | disposition home or self-care (01) ==
LOC: ER 14:17 → 2ND 16:26
PROVIDERS: Emergency Medicine
DX: G45.9 Transient cerebral ischemic attack, unspecified (principal); R47.01 Aphasia; J90 Pleural effusion, not elsewhere classified; Z83.3 Family history of diabetes mellitus; Z82.49 Family history of ischemic heart disease and other diseases of the circulatory system; J44.9 Chronic obstructive pulmonary disease, unspecified; Z79.82 Long term (current) use of aspirin; Z79.51 Long term (current) use of inhaled steroids; Z79.899 Other long term (current) drug therapy; E11.9 Type 2 diabetes mellitus without complications; Z79.84 Long term (current) use of oral hypoglycemic drugs
CPT/HCPCS: G0378; J0456; J2405